=== PATIENT | female | born 1995 | race American Indian/Alaskan Native ===

== ENCOUNTER 2021-09-14 11:58 | Outpatient (CLI) | payer OTHER ==
--- NOTE | 2021-09-14 13:34 | XRay Report ---
LUMBAR SPINE 5 VIEWS INDICATION: BACK PAIN COMPARISON: None. FINDINGS: No acute, displaced fracture is seen. Alignment is within normal limits. No spondylolysis is seen on the oblique views. SI joints are within normal limits. Disc space height is maintained. No significant degenerative changes. CONCLUSION: 1. No acute findings. Signer Name: Maurice Valles MD Signed: 09/14/2021 1:29 PM Workstation Name: [id number]
== END 2021-09-14 11:59 | disposition home or self-care (01) ==
LOC: XRAY 11:58
PROVIDERS: ATTEND Internal Medicine
DX: Z02.71 Encounter for disability determination (principal); M54.50 Low back pain, unspecified; F32.A Depression, unspecified; N80.9 Endometriosis, unspecified
CPT/HCPCS: 72110